=== PATIENT | male | born 1965 | race American Indian/Alaskan Native ===

== ENCOUNTER 2018-05-02 05:50 | Observation (INO) | payer OTHER ==
[2018-03-22 08:34] VITALS: BMI 28.5
[2018-05-02] MEDS ORDERED: Bupivacaine 0.25% 20 ML INJ IJ ONE (07:22)
[2018-05-02] MEDS ORDERED: Lidocaine Hydrochloride 0 ML INJ ONE (07:22)
[2018-05-02] MEDS ORDERED: Bacitracin Ointment 30 GM TUBE ONE (07:22)
[2018-05-02] MEDS ORDERED: ceFAZolin 1 gm FROZEN Premix 2 GM/100 ML ML IVPB ONE (07:23)
[2018-05-02] MEDS ORDERED: Propofol 10 mg/ml 1,000 MG/100 ML VIAL ONE ×3 (07:32→11:20)
[2018-05-02] MEDS ORDERED: Remifentanil 1 mg/3 ml Vial IV ONE ×3 (07:32→11:20)
[2018-05-02] MEDS ORDERED: Propofol 10 mg/ml Inj (20 ML) ONE ×2 (07:41→11:19)
[2018-05-02] MEDS ORDERED: Midazolam 2 MG/2 ML VIAL ONE ×2 (07:41→10:18)
[2018-05-02] MEDS ORDERED: Lidocaine/Epinephrine 1% 1:100000 10 ML IJ ONE (07:45)
[2018-05-02] MEDS ORDERED: Rocuronium 10 mg/ml (5 ml) ONE ×2 (08:45→09:19)
[2018-05-02] MEDS ORDERED: Neostigmine Methylsulfate 3mg/3ml Syringe IV ONE (10:18)
--- NOTE | 2018-05-02 12:27 | PCM.SURG1 ---
Surgeon's Initial Post Op Note - Surgeon's Notes Surgeon: Dr. Gretel Bowden; Dr. Turcios Book Cleaner: Dr. Bello PGY2; Roxanne ANGULOA Type of Anesthesia: General Endo, Local Anesthesia Administered By: Dr. Angeles Pre-Operative Diagnosis: Left Cryptorchidism; Umbilical and Epigastric Ventral Hernias Operative Findings: See operative report Post-Operative Diagnosis: Same Operation Performed: Robot-assisted Left Orchiectomy; Robot-assisted Ventral Hernia Repair with Mesh Specimen/Specimens Removed: Left Testes Estimated Blood Loss: EBL {In ML}: 10 Blood Products Given: N/A Drains Used: No Drains Post-Op Condition: Good Date of Surgery/Procedure: 05/02/18 Time of Surgery/Procedure: 12:28
[2018-05-02] MEDS ORDERED: Trimethobenzamide 200 mg/2 mL Inj IM PRN (12:40)
[2018-05-02] MEDS: HYDROmorphone 0.5 mg/0.5 ml ISec IVP PRN ×4 (12:58→14:15)
[2018-05-02 15:43] VITALS: RESP 20
[2018-05-02] MEDS: Oxycodone/Acetaminophen 5/325 mg Tab PO PRN ×2 (15:45→22:15)
--- NOTE | 2018-05-02 18:12 | PCM.FALL ---
Post Fall Progress Note - Post Fall Fall Date: 05/02/18 Fall Time: 16:38 Description of Fall: mechanical - Post Fall Exam Vital Sign: Temp Pulse Resp BP Pulse Ox 97.4 F L 90 20 122/65 97 05/02/18 18:05 05/02/18 18:05 05/02/18 18:05 05/02/18 18:05 05/02/18 18:05 Skull Exam: Negative for: Scalp wound, Scalp hematoma, Scalp depression, Ridge in skull Eye Exam: Positive for: Pupils equal, Pupils reactive Ear Exam: Negative for: Discharge, Bleeding Nose Exam: Negative for: Discharge, Bleeding Skin Exam: Negative for: Colour, Lacerations, Grazes, Bruising Mouth Exam: Negative for: Tongue bitten, Teeth dislodge Neck Exam: Negative for: Tenderness, Tingling, Weakness Spinal Exam: Negative for: Tenderness, Tingling, Weakness Chest Exam: Negative for: Difficulty breathing, Tenderness in collar bones, Tenderness in ribs Abdomen Exam: Negative for: Tenderness Pelvic Exam: Negative for: Tenderness, Hematuria Arm Exam: Negative for: Deformity, Alteration in range of movement Leg Exam: Negative for: Deformity, Alteration in range of movement Impression/Plan: Pt s/p L orchiectomy and ventral hernia repair attempted to walk with walker in hallway. As per RN note, pt was instructed not to attempt walking but chose to anyway. Pt reports feeling weakness in the legs and then falling on the R side. Fall was witnessed and RN and pt both denied head trauma. Pt denies loss of consciousness, chest pain, dizziness, shortness of breath, abdominal pain, na usea, vomiting, numbness or tingling. Pt was AAOx3 Vitals: afebrile, HR 103, BP 113/71, sat 97% on RA Pt was deemed hemodynamically stable post fall and transferred safely back to bed.
--- NOTE | 2018-05-02 18:37 | OP ---
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 PROCEDURE: Robotic-assisted laparoscopic left orchiectomy. SURGEON: Hans Turcios MD MANAGER CATEGORY: Dr. Bowden. ESTIMATED BLOOD LOSS: Minimal. COMPLICATIONS: None. SPECIMEN SENT: Left testicle and spermatic cord. This dictation pertains only to the urologic portion of the procedure which lasted approximately 30 minutes. The ventral hernia repair portion of the procedure will be dictated separately by Dr. Bowden and his team. INDICATIONS: This is a 52-year-old gentleman with a history of a ventral hernia. He has also been known to have a left undescended testicle since childhood. He was supposed to have an orchiopexy as a child, but never got it done. At the time that he was being worked up for his hernia repair, CT imaging noted a left pelvic testicle. Given his age, it was felt that at this point in time, it would make more sense to perform a left orchiectomy as there is a risk of developing a neoplasm in these undescended testicles. Therefore, the patient was counseled that given that he was having an abdominal surgery anyway for his hernia repair that he should undergo a left orchiectomy. Risks and benefits of the procedure were discussed with the patient. The patient had ample time to ask and receive answers to his questions and he wished to proceed. DESCRIPTION OF PROCEDURE: Dr. Bowden will dictate separately positioning, prepping, draping, and port placement for this patient. A time out was called. When I started the urologic portion of the procedure, a port had been placed in the left upper quadrant to inspect the abdomen. The abdomen appeared grossly free of adhesions. We subsequently placed additional 8 mm robotic trocars approximately 2 cm superior to the umbilicus. Injection of local anesthesia with lidocaine was performed in this location. Additional robotic trocars were placed one handbreadth to the left and right lateral aspect of the umbilicus. These 2 were placed under direct vision. With the ports placed, we found the left pelvic testicle. The robot was docked to the patient. Using monopolar curved scissors and [place] bipolar, we proceeded to dissect the left testicle free off its surrounding attachments. The gonadal vessels were controlled with bipolar cautery as well as placement of Hem-o-kala clips. With the gonadal vessels clipped, we then dissected the spermatic cord free and incised the vas deferens, again controlling the differential artery with combination of cautery and Hem-o-kala clips. With the specimen freed, a 5-mm Endo catch bag was placed to the robotic trocar and the testicle and cord were placed within the Endo Catch specimen bag. At this point, the specimen was retrieved through the midline camera port and sent off for pathologic examination. The remaining portion of the procedure including hernia repair as well as closure of port sites will be dictated separately by Dr. Bowden and his team. Hans Turcios M.D. JULIÁN
--- NOTE | 2018-05-02 18:40 | CP.PCM.PN ---
Subjective - Date & Time of Evaluation Date of Evaluation: 05/02/18 Time of Evaluation: 18:00 - Subjective Subjective: Surgery Progress note. Dr. Bowden Pt seen and examined in [facility]. Patient obtained a robotic left orchiectomy and ventral hernia repair with mesh. POD 0 Patient had a witness fall while walking using a walker. He states that his left leg suddenly gave out and he had a fall onto his right side. He denies any head trauma or loss of consciousness. He denies any trauma. Patient has a history of back injury 20 years ago when he was on a diving board. He had a back extension injury and had acute loss of sensory and motor function to bilateral lower extremities. He had since had spinal surgery with hardware twice. He has had full lower extremity sensor and motor function since. Today, he initially reports right lower extremity weakness and heaviness which improved and is now currently at baseline. He currently reports left lower extremity motor and sensory dysfunction. Initial Exam: Left lower extremity: 3/5 left hip flexion. 3/5 left knee extension. 2/5 left dorsiflexion and 2/5 left plantar flexion. Sensory deficits to the left medial thigh and left proximal lower leg. Right lower extremity: 5/5 motor function throughout. Sensory exam intact throughout He has bilateral lower extremity palpable distal pulses. Bilateral lower extremities are warm and no swelling or calf tenderness noted. On repeat Exam: Left lower extremity: 4/5 left hip flexion. 3/5 left knee extension. 5/5 left dorsiflexion and 5/5 left plantar flexion. Sensor deficits to the left medial thigh and left proximal lower leg persists. Right Lower extremity with no motor or sensory deficits noted. Objective - Vital Signs/Intake and Output Vital Signs (last 24 hours): Temp Pulse Resp BP Pulse Ox 97.4 F L 90 20 122/65 97 05/02/18 18:05 05/02/18 18:05 05/02/18 18:05 05/02/18 18:05 05/02/18 18:05 Intake and Output: 05/02/18 05/02/18 06:59 18:59 Intake Total 2300 Output Total 400 Balance 1900 - Medications Medications: Current Medications Docusate Sodium (Colace) 100 mg PO BID [facility] Heparin Sodium (Porcine) (Heparin) 5,000 units SC Q8 MARGIE Ibuprofen (Motrin Tab) 600 mg PO Q6H MARGIE Stop: 05/07/18 12:46 Oxycodone/Acetaminophen (Percocet 5/325 Mg Tab) 1 tab PO Q6H PRN PRN Reason: Pain, moderate (4-7) Stop: 05/05/18 12:40 Last Admin: 05/02/18 15:45 Dose: 1 tab Trimethobenzamide HCl (Tigan) 200 mg IM ONCE PRN PRN Reason: Nausea/Vomiting - Constitutional Appears: Well, Non-toxic, No Acute Distress - Head Exam Head Exam: ATRAUMATIC, NORMAL INSPECTION, NORMOCEPHALIC - Eye Exam Eye Exam: EOMI, Normal appearance. absent: Scleral icterus - ENT Exam ENT Exam: Mucous Membranes Moist - Respiratory Exam Respiratory Exam: NORMAL BREATHING PATTERN. absent: Accessory Muscle Use, Respiratory Distress - Cardiovascular Exam Cardiovascular Exam: RRR. absent: JVD - GI/Abdominal Exam GI & Abdominal Exam: Soft. absent: Distended, Guarding, Rigid, Rebound Additional comments: Mild periincisional tenderness noted. incisions clean, dry and intact. - Extremities Exam Extremities Exam: Normal Inspection. absent: Calf Tenderness, Tenderness - Back Exam Back Exam: NORMAL INSPECTION. absent: vertebral tenderness - Neurological Exam Neurological Exam: Alert, Awake, Oriented x3 Additional comments: Right lower extremity with motor and sensory intact throughout. Left lower extremity: 4/5 Left hip flexion 3/5 Left knee extension 5/5 left dorsiflexion 5/5 left plantar flexion Decreased sensation to left medial thigh and left proximal lower leg - Skin Skin Exam: Dry, Intact, Normal Color, Warm Assessment and Plan - Assessment and Plan (Free Text) Assessment: 52yo M s/p Robotic Left Orchiectomy and ventral hernia repair with mesh. POD 0 Plan: - Discussed case in detail with Dr. Turcios (Urology) and Dr. Bowden (General Surgery) - Recommend Neurology evaluation, Dr. Atkins. Appreciate recommendations - Admit for observation - Regular diet - Pain management - Bedrest. Out of bed with assistance - Consider neuropraxia symptoms secondary to patient positioning during the operative procedure?? - Discontinue Abdominal binder and Scrotal support. Patient instructed to use pillow for support when sitting up and when using this anterior abdominal muscles. Patient instructed to use lateral abdominal muscles when getting up. Patient understands and agrees with plan Further recs as per Dr. Gretel Bello PGY2 surgery
[2018-05-03 06:29] LABS: BASO % 0.2 % (0.0-2.0); EOS % 0.1 % (0.0-4.0); HEMOGLOBIN 12.9 g/dL (12.0-18.0); LYMPH % 11.7 % (20.0-40.0); MEAN CELL VOLUME 90.4 fL (80.0-94.0); MEAN CORPUSCULAR HEMOGLOBIN 29.8 pg (27.0-31.0); MEAN PLATELET VOLUME 8.1 fL (7.2-11.7); MONO # 0.8 K/uL (0.0-0.8); MONO % 9.2 % (0.0-10.0); NEUT # 6.8 K/uL (1.8-7.0); NEUT % 78.8 % (50.0-75.0); RBC 4.34 Mil/uL (4.40-5.90); RED CELL DISTRIBUTION WIDTH 14.9 % (11.5-14.5); WHITE BLOOD COUNT 8.6 K/uL (4.8-10.8)
[2018-05-03 06:45] LABS: BLOOD UREA NITROGEN 12 mg/dL (9-20); CALCIUM 8.4 mg/dl (8.6-10.4); GFR NON-AFRICAN AMERICAN > 60
[2018-05-03] MEDS: Oxycodone/Acetaminophen 5/325 mg Tab PO PRN ×2 (09:51→22:04)
--- NOTE | 2018-05-03 10:38 | PCM.OP ---
Operative Report - Operative Report Date of Surgery/Procedure: 05/02/18 Time of Surgery/Procedure: 08:30 Surgeon: Gretel Bowden MD; Jeremie Turcios MD - Co-surgeon, Urology Supervisor Lead Refinery: Ryan Bello DO (PGY-2 resident); DELANO Figueroa Anesthesia/Sedation: See main Pre-Operative Diagnosis: Umbilical hernia Ventral epigastric hernia Diastasis recti Left Cryptoorchidism Post-Operative Diagnosis: Umbilical hernia Ventral epigastric hernia Diastasis recti Left Cryptoorchidism Indication for Surgery: See main Operative Findings: 2.5cm umbilical hernia; 2cm epigastric hernia containing preperitoneal fat Procedure/Operation Description: Anesthesia: General endotracheal; 1% lidocaine + 0.25% Marcaine mix local anesthesia INDICATIONS FOR PROCEDURE: 52 year old male with long standing history of undescended left testicle and symptomatic epigastric and umbilicla hernias within a rectus diastasis. Further details of HPI in clinical chart. Risks and benefits of laparoscopic/robotic ventral hernia repair with mesh and plication of rectus diastasis discussed in detail as documented in the clinic chart. Specifically, we have noted the risks of recurrence, mesh infection, bowel injury. Consent for Orchiectomy per Dr. Jeremie Turcios PROCEDURE PERFORMED 1) Laparoscopic, Robotic Assisted Ventral and Umbilical Hernia Repair with mesh (Transabdominal preperitoneal, JACKI procedure, Progrip mesh) DESCRIPTION OF PROCEDURE: The patient was given a preoperative dose of Ancef 2g 20 minutes before the incision. He was taken to the operating room and placed supine on the operating room table with both arms on padded armboard placed at patients side in neutral position. Following successful endotracheal intubation by anesthesia, abdominal hair removed with shaver done and upper body warming blanket placed to maintain body temperature. Sequential compression stockings placed for DVT prophylaxis. A small caliber rajput catheter was inserted to decompress the urinary bladder. NGT inserted to decompress the stomach. He was doubly strapped with safety belt on thighs and tape across lange. The bed was then flexed at the hip 15-20 degrees to allow increased distance between costal margin and ASIS. The abdomen was prepped and draped in sterile fashion. A time out was performed prior to incision. Abdominal entry was gained using an 8mm optically viewing trocar with A 5mm 0-degree laparoscope placed in pal[place] point in the left upper quadrant. All layers of the abdominal wall were seen and peritoneal entry directly visualized. The abdomen was then insufflated with C02 pneumoperitoneum to 15mmhg. 5mm 0-degree laparoscope was then inserted and the abdomen was generally inspected. There were no signs of injury from initial entry and there was not found to be any additional signs of pathology. Two additional 8mm robot working ports were then placed under direct vision following injection of local anesthesia, 1 in right mid abdomen and 1 in supraumbical midline, placed to first allow Dr. Turcios, Urology, to perform a left Orchiectomy, details of which will be dictated by him separately. A face protecting foam was placed over the patient's face and the robot patient cart was docked to the patient. Following completion of orchiectomy, the robot was undocked from the patient and the orchiectomy specimen was removed via enlargement of the midline port site. At this point, two additional working ports were placed the left kayla-abdomen, lateral mid abdomen, and lower iliac fossa for the ventral hernia repair portion of the operation. A 30-degree robotic camera was inserted in the left lateral mid-abdominal port. Robotic instruments were then inserted under direct visualization., a fenestrated bipoar grasper was placed in the left lower port, and monopolar curved scissors placed in left upper port. Hernia contents were reduced using a combination of blunt and electrocautery dissection. See operative findings. We then proceeded with creation of pre-peritoneal flap. The peritoneum incised 5cm lateral to lateral most edge of hernia defect and carries cephalad and caudad for approximately 12cm total, centered around the umibilcal and epigastric hernia defect. Using a combination of blunt and electrocautery dissection we proceeded toward the hernia defect and created a flap approximately 5cm distal to contralateral edge of defect. The hernia was then dissected free from the pseudo sac. Once this was completed, pneumoperitoneum was reduced to 10mmhg, rectus diastasis plication was completed using 0-vlock barbed suture placed in running fashion using venetian blind technique to recreate the midline. The epigastric and umbilical hernia fascial defects were closed in similar fashion using a running 0-vlock suture, incorporating bites of the pseudo sac to re-create the umbilicus with care taken not to include skin. The linea alba was re-approximated without tension. Next a Parietex Progrip, self-adhering, mesh [id number] rectangular mesh introduced into the preperitoneal space. It was placed over the anterior abdominal wall, centered over the closed hernia defect, allowing for appropriate 5cm overlap of hernia defect. No fixation sutures were needed. The peritoneal flap was then closed using running 2-0 v-lock barbed suture in Nya fashion. The robot was then undocked from the patient and I scrubbed back in at bedside. Using the robotic camera, the abdomen was inspected and hemostatic. 30mL of local anesthesia injected under direct vision in pre- peritoneal space adjacent to port sites. The ports were then removed under direct vision and the abdomen desufflated. The skin incisions were closed using interrupted 4-0 Monocryl sutures then Dermabond applied to skin. The patient was extubated in the OR without incident and transferred to recovery in stable condition. Rajput removed at end of case. I was present throughout the entirety of the case. Sponge, needle and instrument counts were correct. Estimated Blood Loss: 15mL Complications: none Specimen: Left Teste (See Dr. Turcios dictation) Discharge & Condition: See main
--- NOTE | 2018-05-03 11:18 | CP.PCM.PN ---
Subjective - Date & Time of Evaluation Date of Evaluation: 05/03/18 Time of Evaluation: 11:15 - Subjective Subjective: General Surgery Progress Note for Dr. Bowden This 52M was seen and examined this Am at bedside. He reports that he has regained some sensation in his left lower extremity distal to his ankle. He explains that as you move more proximal on the lower extremity the more pronounced his paresthesias become. He reports that he has decreased muscle strength on the left lower extremity. He reports that his abdominal pain is well controlled he only required one dose of pain medication. He reports that he is urinating however denies any flatus or BM. He denies any chest pain or SOB. Objective - Vital Signs/Intake and Output Vital Signs (last 24 hours): Temp Pulse Resp BP Pulse Ox 98.5 F 71 20 121/78 97 05/03/18 08:02 05/03/18 08:02 05/03/18 08:02 05/03/18 08:02 05/03/18 08:09 Intake and Output: 05/03/18 05/03/18 06:59 18:59 Intake Total 180 Balance 180 - Medications Medications: Current Medications Docusate Sodium (Colace) 100 mg PO BID [facility] Last Admin: 05/03/18 09:51 Dose: 100 mg Heparin Sodium (Porcine) (Heparin) 5,000 units SC Q8 [facility] Last Admin: 05/03/18 06:33 Dose: 5,000 units Ibuprofen (Motrin Tab) 600 mg PO Q6H [facility] Stop: 05/07/18 12:46 Last Admin: 05/03/18 07:14 Dose: Not Given Oxycodone/Acetaminophen (Percocet 5/325 Mg Tab) 1 tab PO Q6H PRN PRN Reason: Pain, moderate (4-7) Stop: 05/05/18 12:40 Last Admin: 05/03/18 09:51 Dose: 1 tab Potassium Chloride (K-Dur 20 Meq Er Tab) 20 meq PO DAILY ONE Stop: 05/04/18 10:43 Trimethobenzamide HCl (Tigan) 200 mg IM ONCE PRN PRN Reason: Nausea/Vomiting - Labs Labs: 05/03/18 06:20 05/03/18 06:20 - Constitutional Appears: Non-toxic, No Acute Distress - Head Exam Head Exam: ATRAUMATIC - Eye Exam Eye Exam: EOMI - ENT Exam ENT Exam: Mucous Membranes Moist - Respiratory Exam Respiratory Exam: NORMAL BREATHING PATTERN - Cardiovascular Exam Cardiovascular Exam: +S1, +S2 - GI/Abdominal Exam GI & Abdominal Exam: Soft. absent: Guarding, Rigid, Tenderness - Neurological Exam Neurological Exam: Alert, Awake Neuro motor strength exam: Left Lower Extremity: 4, Right Lower Extremity: 5 - Psychiatric Exam Psychiatric exam: Normal Affect, Normal Mood - Skin Skin Exam: Dry, Intact Assessment and Plan - Assessment and Plan (Free Text) Assessment: 52M POD#1 S/P Robot-assisted Left Orchiectomy; Robot-assisted Ventral Hernia Repair with Mesh with post operative left lower extremity weakness Regular Diet Pain control Replete K F/U Neurology Recs PT D/W Dr. Kal Archer PGY3
--- NOTE | 2018-05-03 12:06 | CP.PCM.CON ---
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 Pt is s/p robotic ventral hernia repair, and left orchiectomy for cryptorchidism; POD #1. Pt reports while in PACU just after surgery, he sustained a fall while attempting to stand up; code star called. Pt reports he attempted to stand up from bed, and fell back to bed due to lack of strength. He then attempted to stand with a walker, but reports his left leg gave out on him and pt fell to floor on right side. Pt denies head trauma, LOC, incontinence during event. Events witnessed and confirmed per notes. Pt subsequently reported decreased motor strength and sensation of entire left lower extremity from inguinal region through toes. Upon examination this morning, pt reports improvement in symptoms; pt reports improved motor strength of LLE, as well as improvement in parasthesias, with return of sensation along the plantar and lateral aspect of foot, as well as sensation in proximal 1/3 of thigh. Pt reports he was able to ambulate with the assistance of PT this mo rning. Pt denies headache, dizziness, vision changes, nausea, incontinence, and any symptoms to right LE or upper body. Of note, pt sustained injury to lumbar spine in 2003 while running. He was fou nd he have herniated discs at L3, L4, L5 requiring multiple surgeries including decompression, rods, screws. Pt has degenerative nerve damage as a result, however reports these symptoms are new. Review of Systems - Constitutional Constitutional: absent: Headache - EENT Eyes: absent: Blurred Vision - Cardiovascular Cardiovascular: absent: Chest Pain - Respiratory Respiratory: absent: Dyspnea - Gastrointestinal Gastrointestinal: Abdominal Pain (diffusely 2/2 surgery). absent: Nausea - Genitourinary Genitourinary: absent: Difficulty Urinating, Urinary Incontinence - Musculoskeletal Musculoskeletal: Abnormal Gait, Muscle Weakness (LLE), Numbness (LLE) - Integumentary Integumentary: absent: Swelling - Neurological Neurological: Abnormal Gait, Numbness (LLE), Paresthesias (LLE), Weakness (LLE). absent: Disequilibrium, Dizziness Past Patient History - Past Medical History & Family History Past Medical History?: Yes - Past Social History Smoking Status: Never Smoked - PULMONARY Hx Respiratory Disorders: Yes Hx Asthma: Yes - MUSCULOSKELETAL/RHEUMATOLOGICAL Hx Musculoskeletal Disorders: Yes Hx Back Pain: Yes Hx Herniated Disk: Yes (titantium lumbar) - GENITOURINARY/GYNECOLOGICAL Hx Genitourinary Disorders: Yes (undescended testicle) - SURGICAL HISTORY Hx Surgeries: Yes Hx Cardiac Catheterization: Yes (2008 negative) Hx Musculoskeletal Surgery: Yes (tianium lumbar) - ANESTHESIA Hx Anesthesia: Yes Hx Anesthesia Reactions: Yes (vomitting) Hx Malignant Hyperthermia: No Has any member of the family had a problem w/ anesthesia?: No Meds Allergies/Adverse Reactions: Allergies Allergy/AdvReac Type Severity Reaction Status Date / Time No Known Allergies Allergy Verified 05/30/17 23:40 - Medications Medications: Current Medications Docusate Sodium (Colace) 100 mg PO BID [facility] Last Admin: 05/03/18 09:51 Dose: 100 mg Heparin Sodium (Porcine) (Heparin) 5,000 units SC Q8 [facility] Last Admin: 05/03/18 06:33 Dose: 5,000 units Ibuprofen (Motrin Tab) 600 mg PO Q6H [facility] Stop: 05/07/18 12:46 Last Admin: 05/03/18 07:14 Dose: Not Given Oxycodone/Acetaminophen (Percocet 5/325 Mg Tab) 1 tab PO Q6H PRN PRN Reason: Pain, moderate (4-7) Stop: 05/05/18 12:40 Last Admin: 05/03/18 09:51 Dose: 1 tab Potassium Chloride (K-Dur 20 Meq Er Tab) 20 meq PO DAILY ONE Stop: 05/04/18 10:43 Trimethobenzamide HCl (Tigan) 200 mg IM ONCE PRN PRN Reason: Nausea/Vomiting Physical Exam - Constitutional Appears: Non-toxic, No Acute Distress - Head Exam Head Exam: ATRAUMATIC, NORMAL INSPECTION, NORMOCEPHALIC - Eye Exam Eye Exam: EOMI, Normal appearance - ENT Exam ENT Exam: Mucous Membranes Moist, Normal Exam - Neck Exam Neck exam: Positive for: Normal Inspection - Respiratory Exam Respiratory Exam: NORMAL BREATHING PATTERN. absent: Respiratory Distress - Cardiovascular Exam Cardiovascular Exam: REGULAR RHYTHM, +S1, +S2 - GI/Abdominal Exam GI & Abdominal Exam: Tenderness (tender to palpation diffusely). absent: Distended Additional comments: abdominal incisions healing well, no surrounding erythema or drainage. Incisions closed with derma-figueroa - Exam Additional comments: Tender to palpation along left inguinal region. Sensation intact - Extremities Exam Extremities exam: Positive for: normal inspection, pedal pulses present. Negative for: calf tenderness, full ROM, pedal edema - Neurological Exam Neurological exam: Alert, Oriented x3 Additional comments: decreased sensation on LLE compared to right along medial and dorsal aspect of foot to upper 1/3 of thigh. Decreased muscle strength of left knee flexion/extension, hip flexion/extension compared to right. Dosiflexion strength greater than plantar flexion. - Psychiatric Exam Psychiatric exam: Normal Affect, Normal Mood - Skin Skin Exam: Dry, Intact, Normal Color Results - Vital Signs Recent Vital Signs: Last Vital Signs Temp 98.5 F 05/03/18 08:02 Pulse 71 05/03/18 08:02 Resp 20 05/03/18 08:02 BP 121/78 05/03/18 08:02 Pulse Ox 97 05/03/18 08:09 - Labs Result Diagrams: 05/03/18 06:20 05/03/18 06:20 Labs: Laboratory Results - last 24 hr 05/03/18 05/03/18 06:20 06:20 WBC 8.6 D RBC 4.34 L Hgb 12.9 Hct 39.3 MCV 90.4 D MCH 29.8 MCHC 33.0 RDW 14.9 H Plt Count 226 MPV 8.1 Neut % (Auto) 78.8 H Lymph % (Auto) 11.7 L Barren % (Auto) 9.2 Eos % (Auto) 0.1 Baso % (Auto) 0.2 Neut # (Auto) 6.8 Lymph # (Auto) 1.0 Barren # (Auto) 0.8 Eos # (Auto) 0.0 Baso # (Auto) 0.0 Sodium 133 Potassium 3.8 Chloride 101 Carbon Dioxide 27 Anion Gap 9 L BUN 12 Creatinine 1.0 Est GFR ( Amer) > 60 Est GFR (Non-Af Amer) > 60 Random Glucose 127 H Calcium 8.4 L Assessment & Plan - Assessment and Plan (Free Text) Assessment: 52 year old male with history of spinal cord injury admitted for evaluation of acute onset LLE weakness and paresthesias 1 day s/p robotic ventral hernia repair and left orchiectomy. Plan: -symptoms improving -CT abdomen/pelvis, compare to CT 12/31 -MRI contraindicated due to pt's history or lumbar surgery with hardware, material unknown -decadron 10mg x1 -PT eval Discussed with Dr. Calix -Blaire Cho, PGY-1
--- NOTE | 2018-05-03 14:21 | CP.PCM.PN ---
Subjective - Date & Time of Evaluation Date of Evaluation: 05/03/18 Time of Evaluation: 14:17 - Subjective Subjective: SPINE Office called for stat consult on this patient. Chart reviewed. 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 Pt with remote history of past spinal surger y. Progress note this morning states pt's condition improving, and no order for consult on chart. Therefore, as discussed with Dr. Atkins, will not see the patient unless clinically worsens with evidence of spinal involvement. Thanks. Objective - Vital Signs/Intake and Output Vital Signs (last 24 hours): Temp Pulse Resp BP Pulse Ox 98.5 F 67 20 121/78 97 05/03/18 08:02 05/03/18 12:37 05/03/18 08:02 05/03/18 08:02 05/03/18 12:37 Intake and Output: 05/03/18 05/03/18 06:59 18:59 Intake Total 180 Balance 180 - Medications Medications: Current Medications Docusate Sodium (Colace) 100 mg PO BID [facility] Last Admin: 05/03/18 09:51 Dose: 100 mg Heparin Sodium (Porcine) (Heparin) 5,000 units SC Q8 [facility] Last Admin: 05/03/18 06:33 Dose: 5,000 units Ibuprofen (Motrin Tab) 600 mg PO Q6H [facility] Stop: 05/07/18 12:46 Last Admin: 05/03/18 07:14 Dose: Not Given Oxycodone/Acetaminophen (Percocet 5/325 Mg Tab) 1 tab PO Q6H PRN PRN Reason: Pain, moderate (4-7) Stop: 05/05/18 12:40 Last Admin: 05/03/18 09:51 Dose: 1 tab Potassium Chloride (K-Dur 20 Meq Er Tab) 20 meq PO DAILY ONE Stop: 05/04/18 10:43 Trimethobenzamide HCl (Tigan) 200 mg IM ONCE PRN PRN Reason: Nausea/Vomiting - Labs Labs: 05/03/18 06:20 05/03/18 06:20
--- NOTE | 2018-05-03 15:06 | CT ---
Date of service: 05/03/2018 PROCEDURE: CT Abdomen and Pelvis without intravenous contrast HISTORY: r/o hematoma, paresthesias/weakness LLE COMPARISON: 12/30/2017. TECHNIQUE: CT scan of the abdomen and pelvis was performed without administration of intravenous contrast. Oral contrast was not administered. Coronal and sagittal reformatted images were obtained. . Radiation dose: Total exam DLP = 1254.32 mGy-cm. This CT exam was performed using one or more of the following dose reduction techniques: Automated exposure control, adjustment of the mA and/or kV according to patient size, and/or use of iterative reconstruction technique. FINDINGS: LOWER THORAX: Subsegmental atelectasis in the lower lobes. Trace bilateral pleural effusions. LIVER: Normal in size. No intrahepatic ductal dilatation. GALLBLADDER AND BILE DUCTS: No calcified gallstones. No biliary dilatation PANCREAS: Normal in size. No ductal dilatation. SPLEEN: Normal in size. ADRENALS: Normal in size. No discrete nodule. KIDNEYS AND URETERS: Normal in size without nephrolithiasis. No hydronephrosis. VASCULATURE: No aortic aneurysm. No aortic atherosclerotic calcification or mural plaque present. BOWEL: Evaluation of the bowel is limited in the absence of oral contrast. There is mild dilatation of fluid-filled proximal and mid small bowel loops. The distal small bowel loops are normal in caliber. There is fecalization of small bowel contents in a distal mid small bowel loop. There is moderate amount of stool in the ascending and transverse colon. The descending colon is decompressed. APPENDIX: Normal appendix. PERITONEUM: No free fluid. No free air. LYMPH NODES: No enlarged lymph nodes. BLADDER: Well distended and grossly normal in appearance. REPRODUCTIVE: The prostate gland is normal in size. BONES: No acute fracture. Status post posterior spinal fixation in the lower lumbar spine. OTHER FINDINGS: There is a small sliding hiatal hernia. There is a small left paramedian ventral hernia and fat containing left inguinal hernia. There is symmetric lower lateral abdominal wall fat stranding and inflammatory soft tissue in the deep subcutaneous tissue. Also noted are few foci of air in the deep subcutaneous tissues on the left. IMPRESSION: Mild dilatation of fluid-filled proximal and mid small bowel loops with fecalization of contents in a segment of mid small bowel loops. The distal small bowel loops are normal in caliber. Findings could represent nonspecific acute infectious/inflammatory enteritis however developing bowel obstruction cannot be excluded. Clinical follow-up is advised. Symmetric fat stranding in the lower lateral abdominal wall with associated inflammatory soft tissue in the deep abdominal wall and foci of air in the left lateral abdominal wall, nonspecific and could be related to cellulitis, injury or injection.
--- NOTE | 2018-05-04 08:38 | PN ---
DATE: 05/03/2018 SUBJECTIVE: This is a 52-year-old male who underwent a robotic-assisted laparoscopic ventral hernia repair and robotic-assisted laparoscopic left abdominal testicle orchiectomy. Immediately, postoperatively, the patient noted some right lower extremity motor and sensory deficits. These neurologic symptoms resolved quickly; however, he then developed left lower extremity motor weakness and sensory deficits. He noted difficulty with left foot plantar and dorsiflexion. He also noted difficulty with hip extension and knee extension to the point where he had some difficulty walking. He also noted numbness in the leg. This is in the context of the patient having had prior significant spinal trauma 20 years ago, subsequently, he underwent several spinal surgeries. This morning, his motor function has improved. He is able to plantar and dorsiflex his foot and he is able to extend his hip, but he still has muscle weakness. In addition, he still has some sensory deficit in the left lower extremity and neurology consult has been called by Dr. Atkins. Given this patient's past history and his current symptoms in conversation over the phone with Dr. Atkins, it was decided to give the patient 10 mg of Decadron for spinal . In addition, the plan will be to get a thoracic and lumbar MRI to further evaluate any pathology. The general surgery team was made aware of the plan. I confirmed this plan with Dr. Gretel Bowden, the primary surgeon and we will proceed with the recommendations per neurology and we will await their formal consult note. This plan was discussed with the patient and we will continue to monitor him closely. Hans Turcios M.D. (Delete this signature block when dictator is a preceptor.)
[2018-05-04] MEDS ORDERED: Potassium Chloride 20 mEq ER Tab PO ONE (10:42)
--- NOTE | 2018-05-04 14:12 | CP.PCM.DIS ---
Provider - Provider Date of Admission: 05/02/18 18:55 Attending physician: Gretel Bowden MD Consults: 05/02/18 18:42 Neurology Consult Routine Comment: Consulting Provider: Saeid Atkins Consulting Physician: Saeid Atkins Reason for Consult: possible neuropraxia Time Spent in preparation of Discharge (in minutes): 45 Hospital Course - Lab Results Lab Results: Most Recent Lab Values WBC 8.6 K/uL (4.8-10.8) D 05/03/18 06:20 RBC 4.34 Mil/uL (4.40-5.90) L 05/03/18 06:20 Hgb 12.9 g/dL (12.0-18.0) 05/03/18 06:20 Hct 39.3 % (35.0-51.0) 05/03/18 06:20 MCV 90.4 fL (80.0-94.0) D 05/03/18 06:20 MCH 29.8 pg (27.0-31.0) 05/03/18 06:20 MCHC 33.0 g/dL (33.0-37.0) 05/03/18 06:20 RDW 14.9 % (11.5-14.5) H 05/03/18 06:20 Plt Count 226 K/uL (130-400) 05/03/18 06:20 MPV 8.1 fL (7.2-11.7) 05/03/18 06:20 Neut % (Auto) 78.8 % (50.0-75.0) H 05/03/18 06:20 Lymph % (Auto) 11.7 % (20.0-40.0) L 05/03/18 06:20 Jones % (Auto) 9.2 % (0.0-10.0) 05/03/18 06:20 Eos % (Auto) 0.1 % (0.0-4.0) 05/03/18 06:20 Baso % (Auto) 0.2 % (0.0-2.0) 05/03/18 06:20 Neut # (Auto) 6.8 K/uL (1.8-7.0) 05/03/18 06:20 Lymph # (Auto) 1.0 K/uL (1.0-4.3) 05/03/18 06:20 Jones # (Auto) 0.8 K/uL (0.0-0.8) 05/03/18 06:20 Eos # (Auto) 0.0 K/uL (0.0-0.7) 05/03/18 06:20 Baso # (Auto) 0.0 K/uL (0.0-0.2) 05/03/18 06:20 Sodium 133 mmol/L (132-148) 05/03/18 06:20 Potassium 3.8 mmol/L (3.6-5.2) 05/03/18 06:20 Chloride 101 mmol/L (98-107) 05/03/18 06:20 Carbon Dioxide 27 mmol/L (22-30) 05/03/18 06:20 Anion Gap 9 (10-20) L 05/03/18 06:20 BUN 12 mg/dL (9-20) 05/03/18 06:20 Creatinine 1.0 mg/dL (0.8-1.5) 05/03/18 06:20 Est GFR ( Amer) > 60 05/03/18 06:20 Est GFR (Non-Af Amer) > 60 05/03/18 06:20 Random Glucose 127 mg/dL (75-110) H 05/03/18 06:20 Calcium 8.4 mg/dl (8.6-10.4) L 05/03/18 06:20 - Hospital Course Hospital Course: 52yo M who was brought in via Same Day Surgery for elective Robot-assisted Left orchiectomy and ventral hernia repair with mesh. Post-operatively, patient had complications of neurapraxia with motor and sensory deficit to the left lower extremity. Patient was admitted for observation and neurology consult was obtained. Patient received two doses of decadron while he was in-patient and his symptoms improved significantly. He was evaluated by physical therapy and was deemed safe for discharge home. Discussed discharge instructions and follow up plan with the patient in detail who verbalized his understanding and agrees with the plan. Discharge Exam - Head Exam Head Exam: ATRAUMATIC, NORMAL INSPECTION, NORMOCEPHALIC - Eye Exam Eye Exam: EOMI, Normal appearance. absent: Scleral icterus - ENT Exam ENT Exam: Mucous Membranes Moist - Respiratory Exam Respiratory Exam: NORMAL BREATHING PATTERN. absent: Accessory Muscle Use, Chest Wall Tenderness - Cardiovascular Exam Cardiovascular Exam: absent: JVD - GI/Abdominal Exam GI & Abdominal Exam: Soft. absent: Distended, Firm, Guarding, Rigid, Tenderness Additional comments: incisions clean dry and intact. - Extremities Exam Extremities exam: normal inspection - Neurological Exam Additional comments: motor strength 5/5 in all 4 extremities. Mild sensory deficit to left upper thigh. - Psychiatric Exam Psychiatric exam: Normal Affect, Normal Mood - Skin Skin Exam: Dry, Intact, Normal Color, Warm Discharge Plan - Follow Up Plan Condition: GOOD Disposition: HOME/ ROUTINE Additional Instructions: - Follow up with Dr. Bowden, General Surgery in 2-4 weeks. Call for appointment - Follow up with Dr. Turcios, Urology on the first week of May. Call for appointment - Follow up with Dr. Atkins, Neurology. Call for appointment Prescriptions on chart Referrals: Hans Turcios MD [Staff Provider] - Saeid Atkins MD [Staff Provider] - Gretel Bowden MD [Staff Provider] -
[2018-05-04 15:58] VITALS: BP 119/73; PULSE 78; TEMP 98.7; O2SAT 98
== END 2018-05-04 16:34 | disposition home or self-care (01) ==
LOC: C.SDS 05:50 → C.9S 18:55 → C.3T 20:57
PROVIDERS: ADMIT Surgery; ATTEND Surgery
DX: K43.9 Ventral hernia without obstruction or gangrene (principal); Q53.111 Unilateral intraabdominal testis; K42.9 Umbilical hernia without obstruction or gangrene; J45.909 Unspecified asthma, uncomplicated
CPT/HCPCS: 36415; 49653; 54690; 74176; 80048; 85025; 88305; 96372; 96374; 96375; 96376; 97116; 97162; C1781; G0378; G8978; G8979; J0690; J1100; J1170; J1644; J2001; J2250; J2405; J2704; J2710; J2765; J3010; J3250; J7120